=== PATIENT | male | born 1975 | race Caucasian/White ===

== ENCOUNTER 2017-07-04 19:58 | Emergency (ER) | payer OTHER ==
[2017-07-04 20:04] VITALS: RESP 16; TEMP 97.7; O2SAT 97
--- NOTE | 2017-07-04 20:17 | EDPHY ---
H & P Time Seen by Provider: 07/04/17 20:11 HPI/ROS: CHIEF COMPLAINT: Right 1st metatarsal toe pain HISTORY OF PRESENT ILLNESS: 41-year-old male complaining of acute right foot pain which occurred approximately 8 hr ago when he was at work, stubbed his right great toe and his right 1st metatarsal, complaining of pain at same location. Unable to bear weight secondary to pain. No paresthesia. PHYSICAL EXAM (Prior to examination, patient consented to physical exam, hands were washed and my usual and customary physical exam procedures followed) 1) GENERAL: Well-developed, well-nourished, alert and oriented. Appears to be in no acute distress. 2) HEAD: Normocephalic 3) HEENT: Pupils equal, round, reactive to light bilaterally. 4) LUNGS: Breathing comfortably. 5) MUSCULOSKELETAL: Tender to palpation 1st MTP and distal 1st metatarsal. Ankle nontender. proximal tibia and fibula nontender .5th MT nontender negative Chavez test, compartments soft 6) SKIN: Intact. Ecchymosis to the great toe and distal 1st metacarpal 7) VASCULAR: DP,PT pulses and cap refill present and brisk DIFFERENTIAL DIAGNOSIS: in no particular order including but not limited to fracture, sprain, compartment syndrome Procedure: Crutches indications for crutch use discussed with patient. Patient fitted for crutches by ER staff. Observed ambulating with crutches. I think the patient has the capacity to safely use crutches. Usual and customary crutch walking precautions provided Procedure: Splint A postop shoe splint was applied by ER technician chemical cleaning. After application of the splint I returned and re-examined the patient. The splint was adequately immobilizing the joint and distal to the splint the patient's circulation and sensation were intact. Patient shows no signs of compartment syndrome. Was given orthopedic precautions. Smoking Status: Never smoked Constitutional: Initial Vital Signs Temperature (C) 36.5 C 07/04/17 19:59 Heart Rate 68 07/04/17 19:59 Respiratory Rate 16 07/04/17 19:59 Blood Pressure 127/83 H 07/04/17 19:59 O2 Sat (%) 97 07/04/17 19:59 O2 Delivery Mode Room Air Allergies/Adverse Reactions: potato Allergy (Verified 07/04/17 20:03) Home Medications: Medication Instructions Recorded NK [No Known Home Meds] 07/04/17 MDM/Departure - MDM Imaging Results: Imaging Impressions Foot X-Ray 07/04/17 20:05 Impression: 1. Nondisplaced oblique fracture through the shaft of the right first toe proximal phalanx. images reviewed by myself Medications Given: Discontinued Medications Hydrocodone Bitart/Acetaminophen ([place] 5/325mg Prepack#6) 1 btl TAKEHOME EDNOW ONE Stop: 07/04/17 20:41 Last Admin: 07/04/17 20:45 Dose: 1 btl - Depart Disposition: Home, Routine, Self-Care Clinical Impression: Fracture of right great toe Qualifiers: Encounter type: initial encounter Fracture type: closed Phalanx: proximal Fracture alignment: nondisplaced Qualified Code(s): S92.414A - Nondisplaced fracture of proximal phalanx of right great toe, initial encounter for closed fracture Condition: Good Instructions: Hydrocodone/Acetaminophen (By mouth), Foot Fracture in Adults (ED ) Additional Instructions: Return to the ER immediately if you experience discoloration, have worsening pain, numbness, tingling, or any other symptoms that concern you. If you received x-rays in the emergency department today, be advised, that ligamentous , tendon, muscular, and other non-bony injury cannot be fully ruled out. Try to keep your affected extremity elevated above the level of your chest, and keep cold packs on the affected area, for the next 48 hours. Referrals: Jaskaran Matos MD [Medical Doctor] - 2-3 days, call for appt.
[2017-07-04] MEDS ORDERED: HYDROCOD/APAP 5/325 PREPACK#6 BTL TAKEHOME ONE (20:40)
[2017-07-04 20:59] VITALS: BP 125/78; PULSE 76
== END 2017-07-04 20:58 | disposition home or self-care (01) ==
DX: S92.414A Nondisplaced fracture of proximal phalanx of right great toe, initial encounter for closed fracture (principal); W22.8XXA Striking against or struck by other objects, initial encounter; Y92.69 Other specified industrial and construction area as the place of occurrence of the external cause; Y99.0 Civilian activity done for income or pay; Y93.89 Activity, other specified

== ENCOUNTER 2018-04-11 05:44 | Day surgery (SDC) | payer OTHER ==
[2018-04-11] MEDS ORDERED: ceFAZolin 2 GM/DEXTROSE 100 ML IV ONE (06:03)
[2018-04-11] MEDS ORDERED: OXYMETAZOLINE 30 ML NASAL SPRAY EACHNARE ONE (06:03)
[2018-04-11] MEDS ORDERED: DEXAMETHASONE 10 MG/ML VIAL IVP ONE (06:03)
[2018-04-11] MEDS ORDERED: LIDOCAINE 1% 2 ML INJ ID PRN (06:04)
[2018-04-11] MEDS ORDERED: LR 1,000 ML IV ONE (06:04)
[2018-04-11] MEDS ORDERED: PROPOFOL 200 MG/20 ML VIAL ONE (06:31)
[2018-04-11] MEDS ORDERED: fentaNYL 100 MCG/2 ML INJ ONE ×3 (06:31→10:01)
[2018-04-11] MEDS ORDERED: ROCURONIUM 50 MG/5 ML VIAL ONE (06:31)
[2018-04-11] MEDS ORDERED: LIDOCAINE 2% 2 ML INJ ONE (06:31)
[2018-04-11] MEDS ORDERED: MIDAZOLAM 2 MG/2 ML VIAL IVP ONE (06:55)
--- NOTE | 2018-04-11 06:55 | PDANEPAE ---
ANE History of Present Illness odontogenic cyst ANE Past Medical History - Cardiovascular History Hx Hypertension: No Hx Arrhythmias: No Hx Chest Pain: No Hx Coronary Artery / Peripheral Vascular Disease: No Hx CHF / Valvular Disease: No Hx Palpitations: No - Pulmonary History Hx COPD: No Hx Asthma/Reactive Airway Disease: No Hx Recent Upper Respiratory Infection: No Hx Oxygen in Use at Home: No Hx Sleep Apnea: No Sleep Apnea Screening Result - Last Documented: Negative Pulmonary History Comment: hx of pulmonary nodule in 2013- no further f/u indicated per pcp notes - Neurologic History Hx Cerebrovascular Accident: No Hx Seizures: No Hx Dementia: No - Endocrine History Hx Diabetes: No - Renal History Hx Renal Disorders: No - Liver History Hx Hepatic Disorders: No - Neurological & Psychiatric Hx Hx Neurological and Psychiatric Disorders: No - Cancer History Hx Cancer: No - Congenital Disorder History Hx Congenital Disorders: No - GI History Hx Gastrointestinal Disorders: No - Other Health History Other Health History: wears glasses. mild eczema. xeroderma - Chronic Pain History Chronic Pain: No - Surgical History Prior Surgeries: adenoidectomy at 3 yrs old ANE Review of Systems Review of Systems: - Exercise capacity METS (RN): 4 METS ANE Patient History - Allergies Allergies/Adverse Reactions: potato Allergy (Verified 03/29/18 10:28) - Home Medications Home Medications: Aleve 220 MG (*) 03/29/18 [Last Taken 04/04/18] - NPO status NPO Since - Liquids (Date): 04/11/18 NPO Since - Liquids (Time): 05:00 NPO Since - Solids (Date): 04/10/18 NPO Since - Solids (Time): 20:00 - Smoking Hx Smoking Status: Never smoked - Family Anes Hx Family Hx Anesthesia Complications: none ANE Labs/Vital Signs - Vital Signs Blood Pressure: 118/79 Heart Rate: 57 Respiratory Rate: 15 O2 Sat (%): 95 Height: 180.34 cm Weight: 83.915 kg ANE Physical Exam - Airway Mallampati Score: Class 1 Mouth exam: normal dental/mouth exam - Pulmonary Pulmonary: no respiratory distress - Cardiovascular Cardiovascular: regular rate and rhythym - ASA Status ASA Status: I ANE Anesthesia Plan Anesthesia Plan: general endotracheal anesthesia Specialized Airway: nasal intubation
--- NOTE | 2018-04-11 06:58 | PDHPUP ---
History & Physical Update H&P update statement: This history and physical update is based on an assessment of the patient which was completed after admission or registration (within 24 hours), but prior to the surgery/procedure. H&P update: H&P reviewed & patient examined, no change in patient's condition since H&P completed
[2018-04-11] MEDS ORDERED: BUPIVACAINE/EPI 0.5% 30 ML SDV ONE (07:02)
[2018-04-11] MEDS ORDERED: LIDO/EPI 2%** Not for Epidural 20 ML MDV ONE (07:03)
[2018-04-11] MEDS ORDERED: BACITRACIN ZINC 14.2 GM OINTTUBE TP ONE (07:03)
[2018-04-11] MEDS ORDERED: POLYMYXIN B SULFATE 500,000 UNIT/10 ML SYR IRR ONE (07:04)
[2018-04-11] MEDS ORDERED: BACITRACIN 50,000 UNITS/10 ML SYR IRR ONE (07:04)
[2018-04-11] MEDS ORDERED: CHLORHEXIDINE GLUCONATE 15 ML UDL ONE ×2 (07:05→07:06)
[2018-04-11] MEDS ORDERED: NALOXONE HCL 0.4 MG/ML INJ IVP PRN (07:51)
[2018-04-11] MEDS ORDERED: LABETALOL HCL 5 MG/ML 20 ML MDV IVP PRN (07:51)
[2018-04-11] MEDS ORDERED: PROMETHAZINE HCL 25 MG/ML INJ IVP PRN (07:51)
[2018-04-11] MEDS ORDERED: HYDROmorphONE/DILAUDID 1 MG/ML INJ IVP PRN (07:51)
[2018-04-11] MEDS ORDERED: ALBUTEROL 3 ML DEYVIAL IH PRN (07:51)
[2018-04-11] MEDS ORDERED: HYDROCODONE/APAP 5/325 TAB PO PRN (07:51)
[2018-04-11] MEDS ORDERED: MEPERIDINE 25 MG/0.5 ML AMP IVP PRN (07:51)
[2018-04-11] MEDS ORDERED: ONDANSETRON 4 MG/2 ML VIAL IVP PRN (07:51)
[2018-04-11] MEDS ORDERED: PHENYLEPHRINE HCL 100 MCG/ML SYR IVP PRN (07:51)
[2018-04-11] MEDS ORDERED: LR 500 ML IV PRN (07:51)
--- NOTE | 2018-04-11 09:27 | POSTOPPROG ---
Post Op Note Date of Operation: 04/11/18 Surgeon: Maribel Vee Planer Tailer: Gen Kerr DDS Anesthesia: GET(General Endotracheal) Pre-op Diagnosis: Left mandibular cyst Post-op Diagnosis: Left mandibular cyst Indication: Left mandibular cyst Procedure: Enucleation left mandibular odontogenic cyst, extraction #1,16,17,18, 19 Findings: Left mandibular cyst Inf/Abcess present in the surg proc area at time of surgery?: No Depth: Deep Incisional (Fascial) EBL: Minimal Total fluids administered: 1000ml crystalloid Complications: None Specimen(s): Left mandibular cyst
[2018-04-11] MEDS ORDERED: HYDROmorphONE/DILAUDID 2 MG/ML INJ ONE (10:01)
[2018-04-11] MEDS: fentaNYL 100 MCG/2 ML INJ IVP PRN ×3 (10:03→10:19)
[2018-04-11] MEDS ORDERED: HYDROCODONE/APAP 5/325 TAB ONE (10:55)
[2018-04-11 11:28] VITALS: BP 113/77
--- NOTE | 2018-04-11 13:29 | SUROPNOTE ---
[facility] Operative Report - Surgery Oral and Maxillofacial Operative Report Bakari e of Service: 04/11/18 Pre-op Diagnosis: 1. 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 Disturbance in tooth eruption, malposition teeth #1,16,17 (ICD-10 M26.39) 3. 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 Disturbance in tooth eruption, malposition teeth #1,16,17 (ICD-10 M26.39) 3. 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 Enucleation of left mandibular cyst (74875) 2. Basic Extraction teeth #1,16,18,19 ([id number]) 3. Complicated surgical extraction #17 ([id number]) Surgeon: Maribel Vee DDS 1st Assist: Gen Kerr DDS Anesthesia: NET EBL: Minimal Fluids: 1000ml Crystalloid Specimen: Left mandibular cyst Findings: Thick cystic lining, 50% resorption teeth #18,19. Procedure: Patient met in preop and consent discussed and signed. Smith brought to OR via staff and placed in supine position and secured. Monitors placed and deemed to be working appropriately by anesthesia. NET intubation via left naris x2 due to tube length. Eyes secured with tape. NE tube secured to patient with headwrap and sponge. Throat pack placed and mouth cleaned with peridex. 5cc Lidocaine 2% with 1:200k epi left BROOKS/long buccal blocks and local infiltration. Betadine prep to face from zygoma to clavicals. Drapped in sterile fashion. Bite block placed. 15 blade used to make sulcular incision from #18 to 21. Removed bung. Needle-tip bovie used to make distobuccal incision up to coronoid process. Periosteal used to reflect buccal subperiosteal envelope flap. Elevated and removed #18,19 with 151 forceps. HP/round bur with copious irrigation used to remove overlying crestal bone to access cyst. Curette used to reflect cystic lining. HP/fissure bur used to section tooth #17. Elevated and removed with hemostat. HP/round bur with copious irrigation used to remove intraradicular bone from extraction site #19 to access anterior aspect of cyst. Elevated and removed cystic lining in pieces. BROOKS visualized and intact at inferior aspect of bony cavity. Irrigated flap and left mandibular bony cavity well with NS. 3-0 CG used to gain primary closure of proximal incision and reapproximated tissue at site #19. Due to maleruption #1 and 16, elevated and removed with elevators/hemostat. Compressed and irrigated sockets well. Pressure gauze placed bilaterally. Throat packed removed with suction. Specimen sent for permanent pathology. Face and neck cleaned and dried, eye tape removed. Smith awoke in the OR and was extubated. He was transferred to the PACU where he recovered w/o complications and was discharged home. He is to follow up at [facility] in 1 week.
== END 2018-04-11 11:15 | disposition home or self-care (01) ==
LOC: FSGY 05:44
PROVIDERS: ATTEND Dentist General Practice
DX: K09.0 Developmental odontogenic cysts (principal); M26.39 Other anomalies of tooth position of fully erupted tooth or teeth; K03.3 Pathological resorption of teeth
CPT/HCPCS: J0690; J1100; J1170; J2250; J2704; J3010